=== PATIENT | female | born 1990 | race Caucasian/White ===

== ENCOUNTER 2020-02-08 06:54 | Emergency (ER) | payer BC, OTHER ==
[~2020-02-08 06:54] MED LIST: ALBUTEROL2.5 MG/3 M INH; METOPROLOL SUCC25 MG PO; PRILOSEC OTC20 MG PO; SEROQUEL25 MG PO; SYMBICORT 160-1 INHA INH; VENTOLIN HFA 66.7 GM INH; WELLBUTRIN SR150 M1 PO; XYZAL5 MG PO
[2020-02-08 09:09] LABS: HEMOGLOBIN 12.2 gm/dl (12.3-15.3); RED BLOOD COUNT 4.08 M/UL (4.00-5.10); WHITE BLOOD COUNT 9.1 K/UL (4.5-11.0)
[2020-02-08 09:27] LABS: BUN/CREATININE RATIO 19 (0-10)
[2020-02-08] MEDS ORDERED: DECADRON6 MG PO (09:56)
[2020-02-08] MEDS ORDERED: AZITHROMYCIN250 MG PO (09:56)
== END 2020-02-08 12:13 | disposition home or self-care (01) ==
LOC: ER1 06:54
PROVIDERS: Emergency Medicine
DX: U07.1 COVID-19 (principal); J45.909 Unspecified asthma, uncomplicated; F17.200 Nicotine dependence, unspecified, uncomplicated; Z88.0 Allergy status to penicillin; Z88.2 Allergy status to sulfonamides; Z88.8 Allergy status to other drugs, medicaments and biological substances; Z86.79 Personal history of other diseases of the circulatory system
CPT/HCPCS: 71045; 80053; 84703; 85025; 87081; 87880; 99283; U0002

== ENCOUNTER → 2020-04-12 | Outpatient (CLI) | payer BC, OTHER ==
[~2020-04-12] MED LIST changes: +AZITHROMYCIN250 MG PO; +DECADRON6 MG PO
== END ==
LOC: LAB 19:41
DX: R31.9 Hematuria, unspecified (principal)
CPT/HCPCS: 81001; 87086

== ENCOUNTER 2021-10-04 21:26 | Emergency (ER) | payer BC, OTHER | END 2021-10-04 22:01 | disposition left against medical advice (07) | LOC: ER1 21:26 | DX: M79.661 Pain in right lower leg (principal); R00.0 Tachycardia, unspecified; J45.909 Unspecified asthma, uncomplicated; R40.2410 Glasgow coma scale score 13-15, unspecified time; Z90.49 Acquired absence of other specified parts of digestive tract; Z88.0 Allergy status to penicillin; Z91.041 Radiographic dye allergy status | CPT/HCPCS: 99283 ==

== ENCOUNTER → 2021-10-08 | Outpatient (CLI) | payer BC, OTHER | LOC: US 15:20 | DX: M79.661 Pain in right lower leg (principal) | CPT/HCPCS: 93971 ==